=== PATIENT | female | born 1995 | race Caucasian/White ===

== ENCOUNTER → 2020-05-14 09:28 | Outpatient (CLI) | payer OTHER, SELFPAY ==
--- NOTE | ~2020-05-14 | US_ITS ---
EXAMINATION: US breast LT limited HISTORY: Six-month follow-up of left breast mass. Biopsy was recommended on outside hospital imaging of a mass in the upper-outer quadrant of the left breast in August 2019. TECHNIQUE: Limited left breast ultrasound was performed. COMPARISON: 09/08/2019 FINDINGS: A 3.1 x 2.5 cm oval, circumscribed, parallel, hypoechoic mass with no posterior features or internal vascularity at the 10:00 location 5 cm from the nipple previously measured 2.5 x 1.9 cm. No additional sonographically detected mass is identified. IMPRESSION: Enlarging left breast mass. Ultrasound-guided biopsy is recommended. BI-RADS category 4, suspicious findings. Reviewed, dictated and finalized at location A.
== END ==
DX: N63.20 Unspecified lump in the left breast, unspecified quadrant (principal); R92.8 Other abnormal and inconclusive findings on diagnostic imaging of breast
CPT/HCPCS: 76642